=== PATIENT | male | born 1955 | race American Indian/Alaskan Native ===

== ENCOUNTER 2017-09-05 12:32 | Emergency (ER) | payer MEDICARE, OTHER ==
[2017-09-05 13:17] VITALS: BP 130/84
--- NOTE | 2017-09-05 15:18 | Emergency Department Report ---
ED Recheck HPI - General Chief Complaint: Medical Clearance Stated Complaint: PYSCH MEDICATION Time Seen by Provider: 09/05/17 13:32 Source: patient, family Mode of arrival: Ambulatory Limitations: No Limitations - History of Present Illness Initial Comments: Patient here reports that he just moved from [place] with his brother and they' re here to live with her family member. Patient said he has a history of schizophrenia and depression and has been treated with Prolixin 50 mg every 2 weeks and he is due to get his medication in a couple days. He also said they give him Cogentin 5 mg once daily for the side effects of Prolixin. Patient does have Cogentin bottle that is empty. He denies any suicide or homicide ideation. Denies any visual or auditory hallucination. He said he came here because he was told he should come to the emergency room to get his injection and is medication refill. He also said that he was told that if he come here emergency room will be able to set him up for mental health visit. He denies any pain. Denies any nausea or vomiting. Denies any fever or chill. He denies any shortness of breath or chest pain. She denies any medical problem. He said he only has mental health problems. Complaint: medication refill request, other (wants to speak with social work specialist and mental health counsellor for referral) Initial Visit For: other (this is patient initial visit) Returns Today for: request for prescription Symptoms Since Prior Visit: no new symptoms Associated Symptoms: none Treatments Prior to Arrival: other (none) - Related Data Previous Rx's Medication Instructions Recorded Last Taken Type Benztropine [Cogentin] 0.5 mg PO QDAY 30 Days #30 tablet 09/05/17 Unknown Rx Allergies Allergy/AdvReac Type Severity Reaction Status Date / Time Penicillins Allergy Unknown Verified 09/05/17 13:18 ED Review of Systems ROS: Stated complaint: PYSCH MEDICATION Other details as noted in HPI Comment: All other systems reviewed and negative Constitutional: no symptoms reported Eyes: denies: eye pain, eye discharge, vision change ENT: denies: congestion Respiratory: no symptoms reported Cardiovascular: denies: chest pain, palpitations, dyspnea on exertion, orthopnea , edema, syncope, paroxysmal nocturnal dyspnea Gastrointestinal: denies: abdominal pain, nausea, vomiting, constipation, hematemesis, melena, hematochezia Genitourinary: denies: urgency, dysuria, frequency, hematuria, discharge Musculoskeletal: denies: back pain, joint swelling, arthralgia, myalgia Skin: denies: rash Neurological: denies: headache, numbness, paresthesias, confusion, abnormal gait , vertigo Psychiatric: denies: anxiety, depression, auditory hallucinations, visual hallucinations, homicidal thoughts, suicidal thoughts ED Past Medical Hx - Past Medical History Previous Medical History?: Yes Hx Psychiatric Treatment: Yes Additional medical history: Patient with schizophrenia and depressive disorder - Surgical History Past Surgical History?: No - Family History Family history: CAD/MA, diabetes, hypertension - Social History Smoking Status: Current Every Day Smoker Substance Use Type: Alcohol - Medications Home Medications: Home Medications Medication Instructions Recorded Confirmed Last Taken Type Benztropine [Cogentin] 0.5 mg PO QDAY 30 Days #30 tablet 09/05/17 Unknown Rx ED Physical Exam - General Limitations: No Limitations General appearance: alert, in no apparent distress - Head Head exam: Present: atraumatic, normocephalic, normal inspection - Eye Eye exam: Present: normal appearance, PERRL, EOMI Pupils: Present: normal accommodation - ENT ENT exam: Present: normal exam, normal orophraynx, mucous membranes moist, TM's normal bilaterally, normal external ear exam - Neck Neck exam: Present: normal inspection, full ROM, other (No C-spine tenderness). Absent: tenderness, meningismus, lymphadenopathy - Respiratory Respiratory exam: Present: normal lung sounds bilaterally. Absent: respiratory distress, wheezes, rales, rhonchi, stridor, chest wall tenderness, accessory muscle use - Cardiovascular Cardiovascular Exam: Present: regular rate, normal rhythm, normal heart sounds. Absent: systolic murmur, diastolic murmur - GI/Abdominal GI/Abdominal exam: Present: soft, normal bowel sounds. Absent: distended, tenderness, guarding, rebound, rigid - Extremities Exam Extremities exam: Present: normal inspection, full ROM, normal capillary refill , other (clubbing, cyanosis or edema. +2 pulses in all extremities. No neurovascular compromise). Absent: tenderness, pedal edema, joint swelling, calf tenderness - Back Exam Back exam: Present: normal inspection, full ROM. Absent: tenderness, rash noted - Neurological Exam Neurological exam: Present: alert, oriented X3, normal gait - Psychiatric Psychiatric exam: Present: normal affect, normal mood. Absent: agitated, anxious, flat affect, manic, homicidal ideation, suicidal ideation - Skin Skin exam: Present: warm, dry, intact, normal color. Absent: rash ED Course Vital Signs 09/05/17 13:15 Temperature 98.4 F Pulse Rate 84 Respiratory 18 Rate Blood Pressure 130/84 O2 Sat by Pulse 99 Oximetry - Reevaluation(s) Reevaluation #1: 09/05/17 17:59 seen by mental health and social service and referred to outpatient mental health clinic to follow-up tomorrow for his Prolixin. He is also given an multiple community resources by social service along with prescription drug card for discomfort. ED Recheck MDM - Medical Decision Making ED Course: She does need to [place] from [place] with history of schizophrenia without any symptoms and depression without any suicide ideation or homicide ideation. He said he came to the emergency room because he needs his Prolixin and Cogentin. Patient says that he gets Prolixin shot every 2 weeks at mental health clinic in [place] and he takes Cogentin every day for side effect of Prolixin. He said he is out of his medication and he was told to come to the emergency room and he would like to speak to social work specialist and mental health. Patient was seen by mental health and referral given to [facility] and also patient given multiple community resource to include [facility] for management of any medical problem. Also Dr. Valdez regarding patient presentation and request and he is okay with patient Cogentin being a refill but patient will need to be seen by mental health clinic for his Prolixin injections. Discussed patient that he needs to call the mental health clinic in the morning to schedule an appointment or mental health consult this had he can walk in the clinic. I explained to him that he needs to go ahead and set up an appointment so he can get his Prolixin shot. Patient voiced understanding of discharge diagnoses and follow-up plan and discharged home in stable condition with prescription for Cogentin. Smoking cessation encouraged patient does abuse nicotine. His vital signs are stable he's afebrile. Critical care attestation.: If time is entered above; I have spent that time in minutes in the direct care of this critically ill patient, excluding procedure time. ED Disposition Clinical Impression: Medication refill, Mental health disorder Disposition: [id number] TO HOME OR SELFCARE Is pt being admited?: No Does the pt Need Aspirin: No Condition: Stable Instructions: Schizophrenia (ED), Depression (ED), How to Stop Smoking (ED) Additional Instructions: Please follow up with [facility] for management of your schizophrenia and chronic depression Take referral that was given to you by mental health counselor to the mental health clinic. Utilize community resources given to you by social work specialist especially to follow-up at [facility] for any medical problems that you might have. Please take Cogentin as ordered. Need to see a psychiatrist and mental health professional at mental health clinic before Prolixin can be started Prescriptions: Benztropine [Cogentin] 0.5 mg PO QDAY 30 Days #30 tablet Referrals: [facility] [Outside] - 09/06/17 [facility] [Outside] - 09/06/17 Forms: Accompanied Note
== END 2017-09-05 18:16 | disposition home or self-care (01) ==
LOC: ED 12:32
DX: Z76.0 Encounter for issue of repeat prescription (principal); F99 Mental disorder, not otherwise specified; F20.9 Schizophrenia, unspecified; F32.9 Major depressive disorder, single episode, unspecified; F17.200 Nicotine dependence, unspecified, uncomplicated; Z88.0 Allergy status to penicillin
CPT/HCPCS: 99282